=== PATIENT | male | born 2005 | race Caucasian/White ===

== ENCOUNTER 2023-07-28 20:47 | Emergency (ER) | payer SELFPAY ==
[~2023-07-28] VITALS: Ht 172.7 cm; Wt 63.9 kg
[2023-07-28] MEDS ORDERED: BOOSTRIX VACCINE (TETANUS/DIPHTH/ACEL. PERTUSSIS) 0.5ML SYR IM ONE (21:30)
[2023-07-28] MEDS ORDERED: LIDOCAINE W/EPINEPHRINE 1% 20ML VIAL SC ONE (21:30)
[2023-07-28 22:46] VITALS: BP 122/77; TEMP 98.2; O2SAT 99
== END 2023-07-28 22:48 | disposition home or self-care (01) ==
LOC: M ED 20:47
DX: S16.2XXA Laceration of muscle, fascia and tendon at neck level, initial encounter (principal); X99.1XXA Assault by knife, initial encounter; F17.210 Nicotine dependence, cigarettes, uncomplicated; F12.90 Cannabis use, unspecified, uncomplicated; Z23 Encounter for immunization; Y92.830 Public park as the place of occurrence of the external cause; Y99.9 Unspecified external cause status; Y93.9 Activity, unspecified